=== PATIENT | female | born 1985 | race Two or more races ===

== ENCOUNTER 2016-12-19 18:06 | Emergency (ER) | payer MEDICAID ==
[~2016-12-19] VITALS: Ht 160 cm; Wt 59.0 kg
[2016-12-19] MEDS ORDERED: NKM (18:42)
[2016-12-19 18:58] VITALS: BP 101/60
[2016-12-19 19:53] LABS: MEAN CORPUSCULAR HGB CONC 31.9 G/DL (32.0-36.0); MEAN CORPUSCULAR VOLUME 91 FL (80-99); MEAN PLATELET VOLUME 9.6 FL (6.5-10.1); PLATELET COUNT 155 K/UL (150-450); RED BLOOD COUNT 4.63 M/UL (4.20-5.40); RED CELL DISTRIBUTION WIDTH 12.7 % (11.6-14.8); WHITE BLOOD COUNT 6.4 K/UL (4.8-10.8)
[2016-12-19 20:04] LABS: ALANINE AMINOTRANSFERASE 8 U/L (3-33); ALBUMIN/GLOBULIN RATIO 1.6 (1.0-2.7); ANION GAP 16 (5-15); ASPARTATE AMINO TRANSFERASE 13 U/L (5-40); CALCIUM 9.6 mg/dL (8.6-10.2); CARBON DIOXIDE 25 mEQ/L (20-30); CHLORIDE 99 mEQ/L (98-107); CREATININE 0.7 mg/dL (0.5-0.9); GLOMERULAR FILTRATION RATE > 60 mL/min (>60); HEMOLYSIS 7; LIPASE 22 U/L (< 60); POTASSIUM 3.6 mEQ/L (3.4-4.9); SODIUM 140 mEQ/L (135-145); TOTAL PROTEIN 7.3 g/dL (6.6-8.7)
[2016-12-19 20:26] LABS: APPEARANCE,URINE CLEAR; KETONES,URINE 1+ (NEGATIVE); LEUKOCYTE ESTERASE ,URINE 1+ (NEGATIVE); NITRITE,URINE NEGATIVE (NEGATIVE); PH,URINE 6 (4.5-8.0); PROTEIN,URINE 1+ (NEGATIVE); UROBILINOGEN,URINE 1 MG/DL (0.0-1.0)
[2016-12-19 20:37] LABS: BACTERIA,URINE FEW /HPF; SQUAMOUS EPITHELIAL CELL,UR FEW /LPF (NONE/OCC)
[2016-12-19] MEDS ORDERED: TYLENOL EXTRA500 MG ORAL (20:52)
[2016-12-19] MEDS ORDERED: ZOFRAN4 M3 ORAL (20:52)
[2016-12-19 21:05] VITALS: BP 112/60
[2016-12-19 21:27] LABS: BAND NEUTROPHILS % (MANUAL) 1 % (0-8); BASOPHILS % (MANUAL) 0 % (0-2); EOSINOPHILS % (MANUAL) 0 % (0-3); LYMPHOCYTES % (MANUAL) 9 % (20-45); NEUTROPHILS % (MANUAL) 84 % (45-75); PLATELET ESTIMATE ADEQUATE; PLATELET MORPHOLOGY NORMAL; TOTAL CELLS COUNTED 100
--- NOTE | 2016-12-19 22:54 | Emergency Room Report ---
History of Present Illness General Chief Complaint: Abdominal Pain Source: Patient Present Illness HPI The patient is a 31-year-old female presenting with nausea, vomiting, diarrhea, and abdominal pain which began last night. Abdominal pain as described as a 6/ 10 dull ache to the mid upper abdomen. Pain does not radiate. The patient denies any other symptoms including either, chills, melena, hematochezia, cough , headache, chest pain or shortness of breath Allergies: Coded Allergies: No Known Allergies (Unverified , 12/19/16) Patient History Past Medical History: see triage record Pertinent Family History: none Last Menstrual Period: 12/17/2016 : 0 Para: 0 Reviewed Nursing Documentation: PMH: Agreed, PSxH: Agreed Nursing Documentation-PMH Past Medical History: No Stated History Review of Systems All Other Systems: negative except mentioned in HPI Physical Exam Vital Signs Date Time Temp Pulse Resp B/P Pulse Ox O2 Delivery O2 Flow Rate FiO2 12/19/16 18:36 100.0 124 16 101/60 99 Room Air Sp02 EP Interpretation: reviewed, normal General Appearance: no apparent distress, alert, GCS 15, non-toxic Head: normocephalic, atraumatic Eyes: bilateral eye PERRL, bilateral eye normal inspection ENT: hearing grossly normal, normal pharynx, no angioedema, normal voice Respiratory: chest non-tender, lungs clear, normal breath sounds, speaking full sentences Gastrointestinal: normal bowel sounds, soft, no mass, no guarding, tenderness - epigastric Genitourinary: normal inspection, no CVA tenderness Musculoskeletal: back normal, gait/station normal, normal range of motion, non- tender Neurologic: alert, oriented x3, responsive, motor strength/tone normal, sensory intact, speech normal Psychiatric: judgement/insight normal, memory normal, mood/affect normal, no suicidal/homicidal ideation Skin: normal color, no rash, warm/dry, well hydrated Lymphatic: no adenopathy Medical Decision Making PA Attestation Dr. Durand is my supervising physician. Patient management was discussed with my supervising physician Diagnostic Impression: Primary Impression: Gastroenteritis ER Course The patient is a 31-year-old female presenting with nausea, vomiting, diarrhea, and abdominal pain Differential diagnoses considered include but not limited to gastroenteritis, pancreatitis, appendicitis, , UTI PE: Vitals WNL. NAD. Abdomen: Normal appearance. Non distended. No ecchymosis. Normal BS. +TTP over epigastric region. No McBurney point tenderness. No guarding. No CVA tenderness All lab work is unremarkable. No leukocytosis. Urinalysis shows no signs of infection The patient is given Zofran and IV fluids and is feeling better The patient to be discharged home with a prescription for Tylenol and Zofran. ER precautions are given and the patient will followup with PMD Laboratory Tests Test 12/19/16 17:00 12/19/16 19:25 Urine Color Yellow Urine Appearance Clear Urine pH 6 (4.5-8.0) Urine Specific [place] 1.015 (1.005-1.035) Urine Protein 1+ (NEGATIVE) H Urine Glucose (UA) Negative (NEGATIVE) Urine Ketones 1+ (NEGATIVE) H Urine Occult Blood 5+ (NEGATIVE) H Urine Nitrite Negative (NEGATIVE) Urine Bilirubin Negative (NEGATIVE) Urine Urobilinogen 1 MG/DL (0.0-1.0) H Urine Leukocyte Esterase 1+ (NEGATIVE) H Urine RBC 10-15 /HPF (0 - 2) H Urine WBC 2-4 /HPF (0 - 2) Urine Squamous Epithelial Cells Few /LPF (NONE/OCC) Urine Bacteria Few /HPF (NONE) Urine HCG, Qualitative Negative White Blood Count 6.4 K/UL (4.8-10.8) Red Blood Count 4.63 M/UL (4.20-5.40) Hemoglobin 13.4 G/DL (12.0-16.0) Hematocrit 42.0 % (37.0-47.0) Mean Corpuscular Volume 91 FL (80-99) Mean Corpuscular Hemoglobin 29.0 PG (27.0-31.0) Mean Corpuscular Hemoglobin Concent 31.9 G/DL (32.0-36.0) L Red Cell Distribution Width 12.7 % (11.6-14.8) Platelet Count 155 K/UL (150-450) Mean Platelet Volume 9.6 FL (6.5-10.1) Neutrophils (%) (Auto) % (45.0-75.0) Lymphocytes (%) (Auto) % (20.0-45.0) Monocytes (%) (Auto) % (1.0-10.0) Eosinophils (%) (Auto) % (0.0-3.0) Basophils (%) (Auto) % (0.0-2.0) Differential Total Cells Counted 100 Neutrophils % (Manual) 84 % (45-75) H Lymphocytes % (Manual) 9 % (20-45) L Monocytes % (Manual) 6 % (1-10) Eosinophils % (Manual) 0 % (0-3) Basophils % (Manual) 0 % (0-2) Band Neutrophils 1 % (0-8) Platelet Estimate Adequate Platelet Morphology Normal Red Blood Cell Morphology Normal Sodium Level 140 mEQ/L (135-145) Potassium Level 3.6 mEQ/L (3.4-4.9) Chloride Level 99 mEQ/L (98-107) Carbon Dioxide Level 25 mEQ/L (20-30) Anion Gap 16 (5-15) H Blood Urea Nitrogen 10 mg/dL (7-23) Creatinine 0.7 mg/dL (0.5-0.9) Estimate Glomerular Filtration Rate > 60 mL/min (>60) Glucose Level 124 mg/dL (74-106) H Calcium Level 9.6 mg/dL (8.6-10.2) Total Bilirubin 0.5 mg/dL (0.0-1.2) Aspartate Amino Transferase (AST) 13 U/L (5-40) Alanine Aminotransferase (ALT) 8 U/L (3-33) Alkaline Phosphatase 68 U/L (35-104) Total Protein 7.3 g/dL (6.6-8.7) Albumin 4.5 g/dL (3.5-5.2) Globulin 2.8 g/dL Albumin/Globulin Ratio 1.6 (1.0-2.7) Lipase 22 U/L (< 60) Lab Results Impression all unremarkable Last Vital Signs Date Time Temp Pulse Resp B/P Pulse Ox O2 Delivery O2 Flow Rate FiO2 12/19/16 21:05 100.0 74 16 112/60 99 Room Air Status: improved Disposition: HOME, SELF-CARE Condition: Improved Scripts Acetaminophen* (TYLENOL EXTRA STRENGTH*) 500 Mg Tablet 500 MG ORAL Q8H Y for Prn Headache/Temp > 101, #30 TAB 0 Refills Prov: GABRIELA BOJORQUEZ P.A. 12/19/16 Ondansetron* (ZOFRAN*) 4 Mg Tablet 4 MG ORAL Q6H Y for Nausea & Vomiting, #15 TAB Prov: GABRIELA BOJORQUEZ 12/19/16 Referrals: Beverly Lopez MD (PCP) Patient Instructions: Viral Gastroenteritis, Adult Additional Instructions: I discussed my findings with the patient. All questions and concerns have been answered. Treatment and medication compliance have been addressed. I advised the patient that they need to follow up with PMD in 3-5 days. Return to ED if symptoms worsen, new symptoms arise, or if needed for any reason. Patient verbalized understanding of discharge instructions. GABRIELA BOJORQUEZ Dec 19, 2016 22:54
== END 2016-12-19 21:05 | disposition home or self-care (01) ==
LOC: EMR 18:42
DX: K52.9 Noninfective gastroenteritis and colitis, unspecified (principal)
CPT/HCPCS: 36415; 80053; 81003; 81025; 83690; 85007; 85025; 96360; 96374; 99284; J2405

== ENCOUNTER 2018-03-20 22:24 | Emergency (ER) | payer MEDICAID ==
[~2018-03-20] VITALS: Ht 160 cm; Wt 54.4 kg
[~2018-03-20 22:24] MED LIST: NKM; TYLENOL EXTRA500 MG ORAL; ZOFRAN4 M3 ORAL
[2018-03-20 23:27] LABS: APPEARANCE,URINE CLEAR; BILIRUBIN, URINE NEGATIVE (NEGATIVE); COLOR,URINE PALE YELLOW; GLUCOSE, URINE (UA) NEGATIVE (NEGATIVE); KETONES,URINE NEGATIVE (NEGATIVE); LEUKOCYTE ESTERASE ,URINE NEGATIVE (NEGATIVE); NITRITE,URINE NEGATIVE (NEGATIVE); PH,URINE 7 (4.5-8.0); PROTEIN,URINE NEGATIVE (NEGATIVE); UROBILINOGEN,URINE NORMAL MG/DL (0.0-1.0)
[2018-03-20 23:40] VITALS: BP 110/72
--- NOTE | 2018-03-22 06:14 | Emergency Room Report ---
History of Present Illness General Chief Complaint: Pain Source: Patient Present Illness HPI Patient is a 32-year-old female presented after increased right-sided breast pain. Patient had noticed a area to her breast which had become increasingly tender over the past one day. She denied feeling the mass before. Patient denied any nipple discharge. She denied any prior history of trauma. Patient denied any fever. Allergies: Coded Allergies: No Known Allergies (Unverified , 12/19/16) Patient History Past Medical History: see triage record Last Menstrual Period: 03/09/18 Now: No Reviewed Nursing Documentation: PMH: Agreed; PSxH: Agreed Nursing Documentation-PMH Past Medical History: No Stated History Review of Systems All Other Systems: negative except mentioned in HPI Physical Exam Vital Signs Date Time Temp Pulse Resp B/P (MAP) Pulse Ox O2 Delivery O2 Flow Rate FiO2 03/20/18 22:33 98.5 92 16 112/63 97 Room Air 98.4 General Appearance: well appearing, no apparent distress, alert, GCS 15 Head: normocephalic, atraumatic ENT: hearing grossly normal, normal voice Neck: full range of motion, supple Respiratory: no respiratory distress, speaking full sentences Gastrointestinal: normal inspection Musculoskeletal: normal inspection, no calf tenderness Neurologic: normal inspection, alert, oriented x3, responsive, normal gait Psychiatric: mood/affect normal Skin: no rash, other - right breast nodule about 1.5 cm in size, no fluctuance or erythema Medical Decision Making Diagnostic Impression: Primary Impression: Breast mass ER Course Patient presented for right breast pain. Differential diagnosis included was not limited to breast cancer, fibroadenoma, fibrocystic changes, , abscess among others. Patient has a benign exam and does not appear to require any emergent imaging or laboratory testing at this time. The patient is advised to follow-up with primary care general surgery for outpatient mammography. The patient is advised to return if she began having a fever breast discharge or other concerns. Last Vital Signs Date Time Temp Pulse Resp B/P (MAP) Pulse Ox O2 Delivery O2 Flow Rate FiO2 03/20/18 23:40 98.4 62 16 110/72 99 Room Air 98.4 Status: improved Disposition: HOME, SELF-CARE Condition: Stable Referrals: [facility],REFERRING (PCP) Patient Instructions: Breast Tenderness aMrt Connolly MD Mar 22, 2018 06:14
== END 2018-03-20 23:00 | disposition home or self-care (01) ==
LOC: EMR 23:00
DX: N63.0 Unspecified lump in unspecified breast (principal)
CPT/HCPCS: 81003; 81025; 99282

== ENCOUNTER 2019-06-11 18:54 | Emergency (ER) | payer MEDICAID, OTHER ==
[~2019-06-11] VITALS: Ht 160 cm; Wt 59.0 kg
--- NOTE | 2019-06-11 19:12 | NUR ---
ED Nurse Note: pt was brought in by ER W/C from waiting room. Pt C/O pain to left foot, S/P fall around 1700 today. swelling oted to left foot area. pt is alert x4. VSS
--- NOTE | 2019-06-11 19:27 | Emergency Room Report ---
History of Present Illness General Chief Complaint: Lower Extremity Injury Source: Patient Present Illness HPI 34-year-old female presents to the emergency department complaining of 8 out of 10 severity localized pain to the lateral aspect of the left foot and anterior left knee with bruising status post mechanical trip and fall today. Patient denies falling completely to the ground she denies hitting her head or having a loss of consciousness. Patient denies midline neck or back pain. Patient reports she is unable to bear weight attempts to stand and walk exacerbate her symptoms. Denies numbness tingling or loss of sensation or gross motor movements of the extremities, incontinence of bowel or bladder. Denies CP, Palpitations, LOC, AMS, dizziness, Changes in Vision, weakness or a sudden severe headache. Allergies: Coded Allergies: No Known Allergies (Unverified , 12/19/16) Patient History Past Medical History: see triage record Past Surgical History: none Pertinent Family History: none Last Menstrual Period: 05/18/19 Now: No Reviewed Nursing Documentation: PMH: Agreed; PSxH: Agreed Nursing Documentation-PMH Past Medical History: No Stated History Review of Systems All Other Systems: negative except mentioned in HPI Physical Exam Vital Signs Date Time Temp Pulse Resp B/P (MAP) Pulse Ox O2 Delivery O2 Flow Rate FiO2 06/11/19 19:02 98.1 93 14 105/72 (83) 98 Room Air Sp02 EP Interpretation: reviewed, normal General Appearance: no apparent distress, alert, GCS 15, non-toxic Head: normocephalic, atraumatic Eyes: bilateral eye normal inspection, bilateral eye PERRL ENT: hearing grossly normal, normal voice Neck: full range of motion Respiratory: lungs clear, normal breath sounds, speaking full sentences Cardiovascular #1: regular rate, rhythm, normal capillary refill Cardiovascular #2: 2+ dorsalis pedis (L) Musculoskeletal: back normal, normal range of motion, tender - lateral left foot, bruising noted, swelling noted. There is ttp to anterior left knee, mild bruising, no increased laxity or obvious deformity, FROM of Knee and ankle. Neurologic: alert, oriented x3, responsive, motor strength/tone normal, sensory intact, speech normal, grossly normal Psychiatric: judgement/insight normal Skin: Ecchymosis/Bruising - lateral left foot and anterior aspect of the left knee Medical Decision Making PA Attestation Dr. Lawrence is my supervising Physician whom patient management has been discussed with. Diagnostic Impression: Primary Impression: Foot fracture, left Qualified Codes: S92.902A - Unspecified fracture of left foot, initial encounter for closed fracture Additional Impression: Contusion of knee, left Qualified Codes: S80.02XA - Contusion of left knee, initial encounter ER Course 34-year-old female presents to the emergency department complaining of 8 out of 10 severity localized pain to the lateral aspect of the left foot and anterior left knee with bruising status post mechanical trip and fall today. Patient denies falling completely to the ground she denies hitting her head or having a loss of consciousness. Patient denies midline neck or back pain. Patient reports she is unable to bear weight attempts to stand and walk exacerbate her symptoms. Denies numbness tingling or loss of sensation or gross motor movements of the extremities, incontinence of bowel or bladder. Denies CP, Palpitations, LOC, AMS, dizziness, Changes in Vision, weakness or a sudden severe headache. Ddx considered but are not limited to Fracture, dislocation, contusion, Sprain/ Strain/Spasm, ligamental or meniscal injury just to name a few. Vital signs: are WNL, pt. is afebrile H&PE are most consistent with musculoskeletal injury will perform imaging to r/ o fractures/dislocations. ORDERS: - X-ray Left knee 3 views, and Left foot 3 views - positive for pseudo edwin' s fx of the left 5th metatarsal. ED INTERVENTIONS: - Geronimo PO - Orthopedic walking boot Splint applied to the left foot by breeding technician. Pt. remains neurovascularly intact. --Patient is provided with crutches and instructed on their use -I do not identify an emergent condition at this time. With current presentation , pt. is stable for close outpatient follow up and conservative treatment. D/ w pt. to return promptly to ED with worsening or new symptoms.- Pt. verbalizes' understanding and agreement with proposed treatment plan. DISCHARGE: At this time pt. is stable for d/c to home. Will provide printed patient care instructions, and any necessary prescriptions. Care plan and follow up instructions have been discussed with the patient prior to discharge. Other X-Ray Diagnostic Results Other X-Ray Diagnostic Results #1: X-Ray ordered: Left KNee # of Views/Limited Vs Complete: 3 View Indication: Pain EP Interpretation: Yes PA Xray: Interpretation reviewed, by supervising MD, and agrees with findings. Interpretation: no dislocation, no soft tissue swelling, no fractures Impression: No acute disease Electronically Signed by: Uzma Villa PA-C Other X-Ray Diagnostic Results #2: X-Ray ordered: Left Foot # of Views/Limited Vs Complete: 3 View Indication: Pain EP Interpretation: Yes PRATIBHA Xray: Interpretation reviewed, by supervising MD, and agrees with findings. Interpretation: no dislocation, no soft tissue swelling, other - positive for pseudo edwin's fx of the left 5th metatarsal. Impression: Other - abnormal: Fx. Electronically Signed by: Uzma Villa PA-C Last Vital Signs Date Time Temp Pulse Resp B/P (MAP) Pulse Ox O2 Delivery O2 Flow Rate FiO2 06/11/19 19:02 98.1 93 14 105/72 (83) 98 Room Air Status: improved Disposition: HOME, SELF-CARE Condition: Stable Scripts Ibuprofen* (MOTRIN*) 600 Mg Tablet 600 MG ORAL THREE TIMES A DAY, #30 TAB 0 Refills Prov: Uzma Villa 06/11/19 Hydrocodone Bit/Acetaminophen 5-325* (NORCO 5-325*) 1 Each Tablet 1 TAB ORAL Q6H PRN for For Pain, #12 TAB 0 Refills Prov: Uzma Villa 06/11/19 Referrals: Orthopedic Urgent Care Patient Instructions: Metatarsal Fracture Additional Instructions: Take medications as directed. Follow up with an [employer] in 3-5 days, even if your symptoms have resolved. If symptoms persist MRI may be required at the discretion of your PCP or Ortho Specialist. --Please review list of primary care clinics, if you do not already have a primary care provider who can give you an Orthopedic Referral. Return sooner to ED if new symptoms occur, or current symptoms become worse. Do not drink alcohol, drive, or operate heavy machinery while taking Geronimo as this may cause drowsiness. - Please note that this Emergency Department Report was dictated using [employer] software, occasionally this can lead to erroneous entry secondary to interpretation by the dictation equipment. Uzma Villa Jun 11, 2019 19:27
[2019-06-11] MEDS ORDERED: HYDROcodone/Acetamin 5/325 tab ORAL ONE (19:30)
--- NOTE | 2019-06-11 19:34 | NUR ---
ED Nurse Note: left for x ray
--- NOTE | 2019-06-11 19:50 | NUR ---
ED Nurse Note: pt returned back from x ray
[2019-06-11] MEDS ORDERED: IBUPROFEN600 MG ORAL (19:59)
[2019-06-11] MEDS ORDERED: NORCO 5-325 TA1 EACH ORAL (19:59)
[2019-06-11 20:08] VITALS: BP 128/79
--- NOTE | 2019-06-11 20:08 | NUR ---
ER DISCHARGE NOTE: Patient is cleared to be discharged per ERMD, pt is aox4, on room air, with stable vital signs. pt was given dc and prescription instructions, pt was able to verbalize understanding, pt id band removed without complications. pt is able to ambulate with the use of crutches. pt took all belongings.
--- NOTE | 2019-06-12 17:12 | Diagnostic Imaging Report ---
Indication: Left knee pain Technique: 3 views of the left knee Comparison: None Findings: No suprapatellar effusion. No acute fractures. No dislocations. The joint spaces are preserved Impression: Negative
--- NOTE | 2019-06-12 17:14 | Diagnostic Imaging Report ---
Indication: Left foot pain Technique: 3 views left foot Comparison: none Findings: There is a transverse minimally displaced fracture of the base of the fifth metatarsal. No other acute fractures. No dislocations. The joint spaces are preserved Impression: Positive for fifth metatarsal base fracture This agrees with the preliminary interpretation reported by the emergency room physician in the electronic medical record
== END 2019-06-11 20:08 | disposition home or self-care (01) ==
LOC: EMR 20:01
DX: S92.902A Unspecified fracture of left foot, initial encounter for closed fracture (principal); S80.02XA Contusion of left knee, initial encounter; W01.0XXA Fall on same level from slipping, tripping and stumbling without subsequent striking against object, initial encounter; Y92.9 Unspecified place or not applicable
CPT/HCPCS: 73562; 73630; Z7502; 99284